=== PATIENT | female | born 1935 | race Caucasian/White ===

== ENCOUNTER 2017-08-19 12:41 | Inpatient (IN) | payer MEDICARE, BC ==
[~2017-08-19] VITALS: Ht 167.6 cm; Wt 59.9 kg
--- NOTE | ~2017-08-19 | RHP ---
PATIENT: MARINE SCHULTZ MEDICAL RECORD: [id number] ACCOUNT: [id number] LOCATION:[facility]1115 : 33 ADMISSION DATE: 08/19/17 REHABILITATION HISTORY AND PHYSICAL EXAMINATION POST ADMISSION PHYSICIAN EXAMINATION ADMITTING DIAGNOSES: Acute exacerbation of COPD. HISTORY OF PRESENT ILLNESS: The patient is an 82-year-old female patient admitted with an acute exacerbation of COPD. She presented to her primary care doctor's office, Dr. Brandt on 08/17/2017 for followup of an ER visit. She complained of shortness of breath for the past 5 weeks. While in the ER, a CT and chest x-ray showed exacerbation of COPD. She was discharged to home on prednisone and Zithromax. She continues to be short of breath at rest and with exertion. She gets anxious when able to catch her breath and when she gets worse. She had a history of idiopathic pulmonary fibrosis, diabetes, COPD, and coronary artery disease. She also has had a recent tricuspid aortic valve replacement on 07/10/2017. Previously, she lived alone and until June, she was moderately independent with her ADLs and mobility with a cane. Currently, she is living with her daughter. She is only able to ambulate short distances with a rolling walker due to muscle weakness, lethargy, and dyspnea on exertion. She wants to regain her strength and return back home at her prior level of functioning if possible. COMORBIDITIES: In this patient include aortic stenosis, status post aortic valve replacement; coronary artery disease, status post PTCA with stents; idiopathic pulmonary fibrosis; hypertension; COPD; loss of appetite; hyperlipidemia; and heart murmur. PAST MEDICAL HISTORY: Significant for coronary artery disease with stents, aortic stenosis, COPD, idiopathic pulmonary fibrosis, diabetes, anxiety, and depression. PAST SURGICAL HISTORY: Includes tricuspid aortic valve replacement, PTCA with stents, total knee replacement, hysterectomy, back surgery times 5. ALLERGIES: SULFA, MORPHINE, AND DARVOCET. CURRENT MEDICATIONS: Include metformin 500 mg b.i.d. with meals, Megace 40 mg daily, warfarin 5 mg daily, Detrol 4 mg daily, potassium 10 mEq daily, Protonix 40 mg daily, Lasix 20 mg daily, Plavix 75 mg daily, Anoro 1 puff daily, Mevacor 40 mg q.h.s., Klonopin 0.5 mg b.i.d., Ventolin updrafts, and polyethylene glycol 17 g in 8 ounces of water daily. HABITS: No current alcohol or tobacco use. FAMILY HISTORY: Noncontributory. SOCIAL HISTORY: The patient hopes to return back and get back to her prior level of functioning. REVIEW OF SYSTEMS: GENERAL: Does complain of weakness and fatigue. HEENT: She denies cold, cough, or congestion. CARDIOVASCULAR: Denies any chest pain. HISTORY AND PHYSICAL [id number] MARINE SCHULTZ LUNGS: Does complain of shortness of breath. PHYSICAL EXAMINATION: VITAL SIGNS: Stable, afebrile. GENERAL: A thin female, in no acute distress, alert upon exam. HEENT: Normocephalic and atraumatic. Mucosa moist. NECK: Supple, with no lymphadenopathy. LUNGS: Decreased breath sounds bilaterally. CARDIOVASCULAR: Regular rate and rhythm. ABDOMEN: Benign. EXTREMITIES: No clubbing, cyanosis or edema. NEUROLOGIC: Mostly intact. LABORATORY DATA: Her white count is 9.0, H&H 8.0 and 24.9, and platelet count is noted to be 298. Her sodium is 140, potassium 3.9, BUN and creatinine of 40 and 1.5, and blood sugar was noted to be 131. Her INR is noted to be 6.54. ASSESSMENT: This is an 82-year-old female patient admitted to rehab with a working diagnosis of acute exacerbation of COPD and noted anemia. The patient has potential to make improvement. We instituted the following multidisciplinary therapies including, but not limited to physical, occupational, respiratory, speech, nutritional services, prosthetics, and orthotics. Given her complex medical condition and risk for more complications, rehabilitation services cannot be provided at a low level of care such as a long-term facility. PLAN: 1. Admit to [facility] for intensive inpatient therapy to include the following disciplines: A. Physical therapy to improve gait, all transfer skills and bed mobility to a modified independent level. B. Occupational therapy to improve activities of daily living to a modified independent level. C. Case management to assist with discharge planning and placement options. D. Nutrition to assist with nutritional needs. E. Rehabilitation nursing to assist in monitoring patient's underlying medical conditions and to assist with any type of bowel or bladder management. 2. The patient's current medication and medical care will be continued. 3. The patient will be placed on standard fall precautions. 4. The patient's estimated length of stay is approximately 7-10 days. 5. I am going to go ahead and transfuse her. We will continue on meds as above as appropriate. We are going to hold her Coumadin and watch her INR closely and I will follow up in the a.m. TRANSINT:[id number] Voice Confirmation ID: [id number] DOCUMENT ID: [id number] GABRIELLE notes whether there has been none or any medical/functional change since admission: - No change since prescreen. GABRIELLE attests patient continues to be appropriate for IRF: - Continues to be appropriate. HISTORY AND PHYSICAL [id number] MARINE SCHULTZ SCOTT MD at 1438 CC: [id number] DICTATION DATE: 08/20/17 0852 FIRE SUPPORT MAN: 08/20/17 0915 ADM IN [place] [id number] [place] [id number]
[~2017-08-19 12:41] MED LIST: ALTOPREV40 MG PO; COUMADIN4 MG PO; DETROL LA4 MG PO; GLUCOPHAGE500 MG PO; HCTZ25 MG PO; HYDROCODONE-APA1 TAB PO; KLONOPIN0.5 MG PO; PRILOSEC20 MG PO
[2017-08-19 14:14] VITALS: BP 131/59
[2017-08-19] MEDS ORDERED: PROAIR HFA8.5 GM INH (14:51)
[2017-08-19] MEDS ORDERED: ANORO ELLIPTA1 EACH INH (14:51)
[2017-08-19] MEDS ORDERED: PLAVIX75 MG PO (14:52)
[2017-08-19] MEDS ORDERED: COUMADIN5 MG PO (14:53)
[2017-08-19] MEDS ORDERED: FUROSEMIDE20 MG PO (14:54)
[2017-08-19 19:00] VITALS: BP 136/61
[2017-08-19 22:47] LABS: PROTIME 56.2 SECONDS (11.6-15.0)
[2017-08-19 22:48] LABS: INR 6.54 (0.85-1.17)
[2017-08-20 05:36] LABS: BASOPHILS 0 % (0-2); EOSINOPHILS 0.3 % (0-7); HEMATOCRIT 24.9 % (36.0-48.0); IMMATURE GRANULOCYTES 0.8 % (0-5); LYMPHOCYTES 18.5 % (15-50); MCH 28.1 pg (26.0-34.0); MCHC 32.1 g/dL (31.0-37.0); MCV 87.4 fL (80.0-100.0); MEAN PLATELET VOLUME 11.2 fL (7.4-10.4); MONOCYTES 11.4 % (2-11); RBC 2.85 10x6/uL (4.00-5.40); RDW 16.9 % (11.5-14.5)
[2017-08-20 05:40] LABS: PLATELET COUNT 298 10x3/uL (130-400)
[2017-08-20 05:50] LABS: ANION GAP 11.9 mmol/L (8-16); CALCIUM 9.3 mg/dL (8.5-10.1); CREATININE - SERUM 1.5 mg/dL (0.6-1.3); POTASSIUM - SERUM 3.9 mmol/L (3.5-5.1)
[2017-08-20 06:05] LABS: INR 6.19 (0.85-1.17); PROTIME 53.8 SECONDS (11.6-15.0)
[2017-08-20 08:00] VITALS: BP 141/60
[2017-08-20 13:51] VITALS: Ht 167.6 cm; Wt 59.9 kg
[2017-08-20 20:38] VITALS: BP 144/65
[2017-08-21 06:25] LABS: BASOPHILS 0.1 % (0-2); EOSINOPHILS 2.2 % (0-7); IMMATURE GRANULOCYTES 0.8 % (0-5); LYMPHOCYTES 13.5 % (15-50); MCH 29.1 pg (26.0-34.0); MCHC 34.2 g/dL (31.0-37.0); MEAN PLATELET VOLUME 11.4 fL (7.4-10.4); MONOCYTES 10.2 % (2-11); NEUTROPHILS 73.2 % (40-80); PLATELET COUNT 243 10x3/uL (130-400); RDW 16.3 % (11.5-14.5); WBC 10.3 10x3/uL (4.8-10.8)
[2017-08-21 06:32] LABS: ANION GAP 10.7 mmol/L (8-16); CALCIUM 8.9 mg/dL (8.5-10.1); CARBON DIOXIDE 27.3 mmol/L (21.0-32.0); CREATININE - SERUM 1.6 mg/dL (0.6-1.3)
[2017-08-21 06:35] LABS: HEMATOCRIT 36.3 % (36.0-48.0); HEMOGLOBIN 12.4 g/dL (12-16); MCV 85.2 fL (80.0-100.0); RBC 4.26 10x6/uL (4.00-5.40)
[2017-08-21 07:27] LABS: INR 2.51 (0.85-1.17); PROTIME 26.4 SECONDS (11.6-15.0)
[2017-08-21 08:27] VITALS: BP 143/67
[2017-08-21 19:00] VITALS: BP 107/54
[2017-08-22 06:41] VITALS: BP 110/58
[2017-08-22 07:31] LABS: BASOPHILS 0 % (0-2); EOSINOPHILS 2.6 % (0-7); HEMATOCRIT 34.9 % (36.0-48.0); HEMOGLOBIN 11.9 g/dL (12-16); IMMATURE GRANULOCYTES 0.6 % (0-5); LYMPHOCYTES 11.9 % (15-50); MCH 29.2 pg (26.0-34.0); MCHC 34.1 g/dL (31.0-37.0); MCV 85.7 fL (80.0-100.0); MEAN PLATELET VOLUME 10.9 fL (7.4-10.4); MONOCYTES 8.3 % (2-11); NEUTROPHILS 76.6 % (40-80); PLATELET COUNT 206 10x3/uL (130-400); RBC 4.07 10x6/uL (4.00-5.40); RDW 16.3 % (11.5-14.5); WBC 9.5 10x3/uL (4.8-10.8)
[2017-08-22 07:38] LABS: CALCIUM 8.9 mg/dL (8.5-10.1); CARBON DIOXIDE 25.5 mmol/L (21.0-32.0); CREATININE - SERUM 1.4 mg/dL (0.6-1.3)
[2017-08-22 07:39] LABS: POTASSIUM - SERUM 3.5 mmol/L (3.5-5.1)
[2017-08-22 07:43] LABS: INR 1.58 (0.85-1.17); PROTIME 18.4 SECONDS (11.6-15.0)
[2017-08-22 19:27] VITALS: BP 128/71
[2017-08-23 04:48] LABS: INR 1.49 (0.85-1.17); PROTIME 17.6 SECONDS (11.6-15.0)
[2017-08-23 08:00] VITALS: BP 136/55
[2017-08-23 19:33] VITALS: BP 144/68
[2017-08-24 07:11] LABS: PROTIME 20.5 SECONDS (11.6-15.0)
[2017-08-24 07:18] LABS: INR 1.82 (0.85-1.17)
[2017-08-24 08:00] VITALS: BP 112/54
[2017-08-25 06:50] LABS: INR 2.1 (0.85-1.17)
[2017-08-25 08:00] VITALS: BP 110/53
[2017-08-25 19:00] VITALS: BP 130/59
[2017-08-26 07:09] LABS: BASOPHILS 0.3 % (0-2); EOSINOPHILS 4.5 % (0-7); HEMOGLOBIN 11.7 g/dL (12-16); IMMATURE GRANULOCYTES 0.4 % (0-5); LYMPHOCYTES 17.9 % (15-50); MCH 29.4 pg (26.0-34.0); MCHC 33.4 g/dL (31.0-37.0); MCV 87.9 fL (80.0-100.0); MONOCYTES 11.4 % (2-11); NEUTROPHILS 65.5 % (40-80); PLATELET COUNT 181 10x3/uL (130-400); RBC 3.98 10x6/uL (4.00-5.40); RDW 15.6 % (11.5-14.5)
[2017-08-26 07:23] LABS: INR 2.37 (0.85-1.17); PROTIME 25.3 SECONDS (11.6-15.0)
[2017-08-26 07:34] LABS: ANION GAP 12.3 mmol/L (8-16); CALCIUM 8.6 mg/dL (8.5-10.1); CARBON DIOXIDE 26.5 mmol/L (21.0-32.0); CREATININE - SERUM 1.1 mg/dL (0.6-1.3); POTASSIUM - SERUM 3.8 mmol/L (3.5-5.1)
[2017-08-26 08:00] VITALS: BP 110/54
[2017-08-26 19:00] VITALS: BP 131/71
[2017-08-27 06:35] LABS: PROTIME 29.9 SECONDS (11.6-15.0)
[2017-08-27 06:39] LABS: INR 2.93 (0.85-1.17)
[2017-08-27 08:00] VITALS: BP 133/63
[2017-08-27] MEDS ORDERED: COUMADIN4 MG PO (08:57)
== END 2017-08-27 15:52 | disposition home or self-care (01) | DRG 192 ==
LOC: D.REHAB 12:41
PROVIDERS: Emergency Medicine
DX: J44.1 Chronic obstructive pulmonary disease with (acute) exacerbation (principal); I35.0 Nonrheumatic aortic (valve) stenosis; Z95.2 Presence of prosthetic heart valve; I25.10 Atherosclerotic heart disease of native coronary artery without angina pectoris; Z95.5 Presence of coronary angioplasty implant and graft; J84.112 Idiopathic pulmonary fibrosis; I10 Essential (primary) hypertension; E78.5 Hyperlipidemia, unspecified; R63.0 Anorexia; R01.1 Cardiac murmur, unspecified; E11.9 Type 2 diabetes mellitus without complications

== ENCOUNTER 2017-12-28 10:49 | Outpatient (CLI) | payer MEDICARE, BC ==
[~2017-12-28] VITALS: Ht 167.6 cm; Wt 59.1 kg
[~2017-12-28 10:49] MED LIST changes: +ANORO ELLIPTA1 EACH INH; +COUMADIN5 MG PO; +FUROSEMIDE20 MG PO; +PLAVIX75 MG PO; +PROAIR HFA8.5 GM INH
[2017-12-28 13:36] VITALS: Ht 167.6 cm; Wt 59.1 kg
== END 2017-12-28 20:04 | disposition home or self-care (01) ==
LOC: D.OPS 10:49
DX: D64.89 Other specified anemias (principal); Z01.812 Encounter for preprocedural laboratory examination